=== PATIENT | male | born 1955 | race African-American/Black ===

== ENCOUNTER 2018-11-07 08:19 | Outpatient (CLI) | payer MEDICARE ==
[~2018-11-07 08:19] MED LIST: REGADENOSON 0.4 MG/5 ML SYRINGE ONE
== END 2018-11-07 23:59 | disposition home or self-care (01) ==
LOC: CFH 08:19
PROVIDERS: ATTEND Nurse Practitioner Family
DX: I10 Essential (primary) hypertension (principal)
CPT/HCPCS: 78452; 93017; A9502; J2785